=== PATIENT | female | born 1955 | race Caucasian/White ===

== ENCOUNTER → 2017-01-07 | Outpatient (CLI) | payer BC | END | disposition home or self-care (01) | LOC: CFH 11:22 | DX: Z12.31 Encounter for screening mammogram for malignant neoplasm of breast (principal) | CPT/HCPCS: G0202 ==

== ENCOUNTER 2020-03-13 14:28 | Inpatient (IN) | payer BC, OTHER ==
[~2020-03-13] VITALS: Ht 170.2 cm; Wt 56.9 kg
[2020-03-13 15:26] LABS: MEAN CORPUSCULAR HEMOGLOBIN 31.9 pg (27.0-34.8); MEAN CORPUSCULAR HGB CONC 34.6 g/dL (32.4-35.8); MEAN PLATELET VOLUME 9.4 fL (7.4-10.4); PLATELET COUNT 168 x10^3/uL (130-400); RED BLOOD COUNT 4.74 x10^6/uL (3.82-5.3); RED CELL DISTRIBUTION WIDTH 14.7 % (9.6-15.2)
[2020-03-13] MEDS ORDERED: SODIUM CHLORIDE 0.9% 1,000ML IVBOLUS ONE (15:30)
[2020-03-13] MEDS ORDERED: LORazepam 2 MG/ML, 1ML ONE (15:35)
[2020-03-13 15:36] LABS: ALANINE AMINOTRANSFERASE 150 U/L (12-78); ALBUMIN 3.8 g/dL (3.4-5.0); ANION GAP 10 mmol/L (5-15); CALCIUM 10.9 mg/dL (8.5-10.1); CHLORIDE 102 mmol/L (98-107); CREATININE 0.67 mg/dL (0.55-1.02)
[2020-03-13 15:38] LABS: ALKALINE PHOSPHATASE 496 U/L (45-117); BILIRUBIN,TOTAL 0.8 mg/dL (0.2-1.0); TOTAL PROTEIN 7.8 g/dL (6.4-8.2)
--- NOTE | 2020-03-13 15:48 | NUR ---
Pt with hx of migraines presents to the ER after being sent by her PCP for elevated anmonia levels. Pt states that she's had a constant MORRISSEY since January. She was seen by her PCP who recommended an ENT who was able to remove "significant amount of ear wax." The ENT recommended an eye doctor, the opthomologist states "he could see the double vision in my left eye." Pt has had a "normal CT of the brain." Pt ambulatory to [facility], steady gait. Daughter at side.
[2020-03-13] MEDS ORDERED: LORazepam 2 MG/ML, 1ML IVPush ONE (16:00)
[2020-03-13 16:03] LABS: MD YES
[2020-03-13 16:05] LABS: <PLATELET ESTIMATE> ADEQUATE; <PLT MORPHOLOGY> NORMAL PLT MORPH; BAND#(MANUAL) 0.09 x10^3/uL; BANDS%(MANUAL) 1 % (0-7); LYMPH#(MANUAL) 2.43 x10^3/uL (1-3.4); LYMPHS% (MANUAL) 27 % (22-44); MONOS#(MANUAL) 0.54 x10^3/uL (0.3-2.7); MONOS% (MANUAL) 6 % (2-9); SEG#(MANUAL) 5.94 x10^3/uL (1.8-6.8); SEGS% (MANUAL) 66 % (42-75)
[2020-03-13 16:06] LABS: <RBC MORPHOLOGY> NORMAL
[2020-03-13] MEDS ORDERED: ONDANSETRON 2MG/ML, 2ML IVPush ONE (16:30)
[2020-03-13] MEDS ORDERED: MORPHINE SULFATE 4 MG/ML, 1ML IVPush PRN (16:30)
[2020-03-13 16:31] LABS: MICROSCOPIC NOT IND
--- NOTE | 2020-03-13 16:53 | NUR ---
MD Mcadams at bedside to update pt on POC.
--- NOTE | 2020-03-13 17:19 | NUR ---
Pt denies need for pain meds at this time. Pt to imaging.
[2020-03-13] MEDS ORDERED: OMNIPAQUE 350 MG/ML, 100ML BOTTLE ONE (17:36)
--- NOTE | 2020-03-13 18:37 | NUR ---
This RN at bedside with MD Mcadams to update pt and daughter on POC.
[2020-03-13] MEDS ORDERED: SODIUM CHLORIDE 0.9% 1,000 ML IV ONE (19:00)
--- NOTE | 2020-03-13 19:24 | NUR ---
Vj CEJA NP at bedside.
[2020-03-13] MEDS ORDERED: morphine SULFATE 10 MG/ML, 1ML IVPush PRN (20:00)
[2020-03-13] MEDS ORDERED: ONDANSETRON ODT 4 MG PO PRN (20:00)
[2020-03-13] MEDS ORDERED: BISACODYL 10 MG SUPP PR PRN (20:00)
[2020-03-13] MEDS ORDERED: POLYETHYLENE GLYCOL 17 GM PACKET PO PRN (20:00)
[2020-03-13 20:01] VITALS: BP 134/75
[2020-03-13] MEDS: GABAPENTIN 100 MG CAPSULE PO SCH (21:21)
[2020-03-13] MEDS: SODIUM CHLORIDE FLUSH 10ML SYR IVF SCH (21:22)
[2020-03-14 00:12] VITALS: BP 150/72
[2020-03-14 04:51] LABS: BASOPHILS % (AUTO) 1 % (0-1); EOSINOPHILS % (AUTO) 1 % (1-7); LYMPHOCYTES % (AUTO) 21 % (22-44); MEAN CORPUSCULAR HEMOGLOBIN 31.7 pg (27.0-34.8); MEAN CORPUSCULAR HGB CONC 34.4 g/dL (32.4-35.8); MEAN PLATELET VOLUME 8.9 fL (7.4-10.4); MONOCYTES % (AUTO) 8 % (2-9); NEUTROPHILS % (AUTO) 70 % (42-75); PLATELET COUNT 144 x10^3/uL (130-400); RED BLOOD COUNT 4.11 x10^6/uL (3.82-5.3); RED CELL DISTRIBUTION WIDTH 14.7 % (9.6-15.2)
[2020-03-14 05:01] LABS: ALANINE AMINOTRANSFERASE 122 U/L (12-78); ALBUMIN 3.2 g/dL (3.4-5.0); ANION GAP 5 mmol/L (5-15); CALCIUM 9.9 mg/dL (8.5-10.1); CHLORIDE 107 mmol/L (98-107); CREATININE 0.43 mg/dL (0.55-1.02)
[2020-03-14 05:04] LABS: ALKALINE PHOSPHATASE 422 U/L (45-117); BILIRUBIN,TOTAL 0.7 mg/dL (0.2-1.0); TOTAL PROTEIN 6.4 g/dL (6.4-8.2)
[2020-03-14 05:34] LABS: MD SCAN
[2020-03-14 06:10] VITALS: BP 147/75
[2020-03-14 07:17] LABS: INTERNATIONAL NORMALIZED RATIO 0.99 (0.93-1.1); PROTHROMBIN TIME 10.6 Seconds (9.6-11.5)
[2020-03-14] MEDS ORDERED: GADOTERATE 5 MMOL/10 ML VIAL ONE (08:07)
[2020-03-14] MEDS ORDERED: LIDOCAINE 1%, 10ML ONE (08:08)
[2020-03-14] MEDS ORDERED: FENTANYL PF 100 MCG/2ML ONE (08:34)
[2020-03-14] MEDS ORDERED: MIDAZOLAM 1 MG/ML, 5ML ONE ×2 (08:34→08:35)
[2020-03-14] MEDS ORDERED: FLUMAZENIL 0.1 MG/1 ML, 5ML ONE (08:35)
[2020-03-14] MEDS ORDERED: NALOXONE 1 MG/ML, 2ML ONE (08:35)
[2020-03-14] MEDS ORDERED: OMNIPAQUE 350 MG/ML, 75ML BOTTLE ONE (09:19)
[2020-03-14] MEDS: SENNA/DOCUSATE TABLET PO SCH (09:49)
[2020-03-14] MEDS: SODIUM CHLORIDE FLUSH 10ML SYR IVF SCH ×2 (09:49→19:58)
[2020-03-14] MEDS: GABAPENTIN 100 MG CAPSULE PO SCH ×3 (09:49→19:58)
[2020-03-14] MEDS: ACETAMINOPHEN 325 MG TABLET PO PRN (13:52)
[2020-03-14 14:00] VITALS: BP 147/55
[2020-03-14 19:22] VITALS: BP 129/71
[2020-03-14] MEDS: AMOXICILLIN/CLAV 875-125MG TABLET PO SCH (19:56)
[2020-03-14] MEDS: OXYcodone IR 5MG TABLET PO PRN (19:57)
[2020-03-15] MEDS: OXYcodone IR 5MG TABLET PO PRN ×2 (00:26→10:27)
[2020-03-15] MEDS ORDERED: TRIAMCINOLONE ACETONIDE 40 MG/ML, 1ML IM ONE (01:30)
[2020-03-15] MEDS ORDERED: LIDOCAINE 1%, 10ML INFIL ONE (01:30)
[2020-03-15 01:34] VITALS: BP 124/73
[2020-03-15 05:17] LABS: MEAN CORPUSCULAR HEMOGLOBIN 31.6 pg (27.0-34.8); MEAN CORPUSCULAR HGB CONC 33.9 g/dL (32.4-35.8); MEAN PLATELET VOLUME 8.9 fL (7.4-10.4); PLATELET COUNT 150 x10^3/uL (130-400); RED BLOOD COUNT 4.17 x10^6/uL (3.82-5.3); RED CELL DISTRIBUTION WIDTH 14.6 % (9.6-15.2)
[2020-03-15 05:28] LABS: ANION GAP 6 mmol/L (5-15); CALCIUM 10.4 mg/dL (8.5-10.1); CHLORIDE 106 mmol/L (98-107)
[2020-03-15 05:52] LABS: MD YES
[2020-03-15 05:55] LABS: <RBC MORPHOLOGY> NORMAL; BAND#(MANUAL) 0.67 x10^3/uL; BANDS%(MANUAL) 9 % (0-7); EOS#(MANUAL) 0.44 x10^3/uL (0.0-0.4); EOS% (MANUAL) 6 % (1-7); LYMPH#(MANUAL) 0.89 x10^3/uL (1-3.4); LYMPHS% (MANUAL) 12 % (22-44); METAMYELOCYTES# (MANUAL) 0.07 x10^3/uL (0-0); METAMYELOCYTES% (MANUAL) 1 % (0-1); MONOS#(MANUAL) 0.52 x10^3/uL (0.3-2.7); MONOS% (MANUAL) 7 % (2-9); MYELOCYTES# (MANUAL) 0.07 x10^3/uL (0-0); MYELOCYTES% (MANUAL) 1 % (0-0); SEG#(MANUAL) 4.74 x10^3/uL (1.8-6.8); SEGS% (MANUAL) 64 % (42-75)
[2020-03-15 05:56] LABS: <PLATELET ESTIMATE> ADEQUATE; <PLT MORPHOLOGY> NORMAL PLT MORPH
[2020-03-15 07:48] VITALS: BP 119/56
[2020-03-15] MEDS: AMOXICILLIN/CLAV 875-125MG TABLET PO SCH ×2 (08:08→23:04)
[2020-03-15] MEDS: GABAPENTIN 100 MG CAPSULE PO SCH ×3 (08:08→23:05)
[2020-03-15] MEDS: SENNA/DOCUSATE TABLET PO SCH (08:09)
[2020-03-15] MEDS: SODIUM CHLORIDE FLUSH 10ML SYR IVF SCH ×2 (08:09→23:05)
[2020-03-15 13:02] VITALS: BP 120/66
[2020-03-15 20:17] VITALS: BP 127/71
[2020-03-15] MEDS: ACETAMINOPHEN 325 MG TABLET PO PRN (23:04)
[2020-03-16 00:22] VITALS: BP 126/75
[2020-03-16] MEDS: ACETAMINOPHEN 325 MG TABLET PO PRN ×3 (03:17→18:45)
[2020-03-16] MEDS: OXYcodone IR 5MG TABLET PO PRN ×4 (03:17→23:39)
[2020-03-16 04:54] LABS: MEAN CORPUSCULAR HEMOGLOBIN 31.5 pg (27.0-34.8); MEAN CORPUSCULAR HGB CONC 33.8 g/dL (32.4-35.8); MEAN PLATELET VOLUME 9.1 fL (7.4-10.4); PLATELET COUNT 152 x10^3/uL (130-400); RED BLOOD COUNT 4.18 x10^6/uL (3.82-5.3); RED CELL DISTRIBUTION WIDTH 14.8 % (9.6-15.2)
[2020-03-16 05:46] LABS: MD YES
[2020-03-16 05:48] LABS: BAND#(MANUAL) 0.67 x10^3/uL; BANDS%(MANUAL) 9 % (0-7); BASOS#(MANUAL) 0.07 x10^3/uL (0-0.1); BASOS% (MANUAL) 1 % (0-1); EOS#(MANUAL) 0.22 x10^3/uL (0.0-0.4); EOS% (MANUAL) 3 % (1-7); LYMPH#(MANUAL) 1.48 x10^3/uL (1-3.4); LYMPHS% (MANUAL) 20 % (22-44); METAMYELOCYTES# (MANUAL) 0.37 x10^3/uL (0-0); METAMYELOCYTES% (MANUAL) 5 % (0-1); MONOS#(MANUAL) 0.67 x10^3/uL (0.3-2.7); MONOS% (MANUAL) 9 % (2-9); SEG#(MANUAL) 3.92 x10^3/uL (1.8-6.8); SEGS% (MANUAL) 53 % (42-75)
[2020-03-16 05:49] LABS: <PLATELET ESTIMATE> ADEQUATE; <PLT MORPHOLOGY> NORMAL PLT MORPH; <RBC MORPHOLOGY> NORMAL
[2020-03-16 07:05] VITALS: BP 150/73
[2020-03-16] MEDS: GABAPENTIN 100 MG CAPSULE PO SCH ×3 (08:06→21:00)
[2020-03-16] MEDS: AMOXICILLIN/CLAV 875-125MG TABLET PO SCH ×2 (08:06→21:00)
[2020-03-16] MEDS: SODIUM CHLORIDE FLUSH 10ML SYR IVF SCH ×2 (08:06→21:02)
[2020-03-16] MEDS: SENNA/DOCUSATE TABLET PO SCH (08:06)
[2020-03-16 12:47] VITALS: BP 147/76
[2020-03-16 16:33] LABS: ALANINE AMINOTRANSFERASE 172 U/L (12-78); ALBUMIN 3.6 g/dL (3.4-5.0); ANION GAP 7 mmol/L (5-15); CALCIUM 10.8 mg/dL (8.5-10.1); CHLORIDE 105 mmol/L (98-107); CREATININE 0.58 mg/dL (0.55-1.02)
[2020-03-16 16:35] LABS: ALKALINE PHOSPHATASE 521 U/L (45-117); BILIRUBIN,TOTAL 0.9 mg/dL (0.2-1.0)
[2020-03-16 19:35] VITALS: BP 149/77
[2020-03-16] MEDS ORDERED: ALUMINUM/MAG/SIMETHICONE 30 ML UDC PO PRN (20:30)
[2020-03-16] MEDS: HEPARIN 5,000 UNITS/ML, 1ML SQ SCH (21:02)
[2020-03-17 01:27] VITALS: BP 145/77
[2020-03-17] MEDS: OXYcodone IR 5MG TABLET PO PRN ×4 (03:34→20:38)
[2020-03-17 05:23] LABS: BASOPHILS % (AUTO) 1 % (0-1); EOSINOPHILS % (AUTO) 1 % (1-7); LYMPHOCYTES % (AUTO) 21 % (22-44); MEAN CORPUSCULAR HEMOGLOBIN 31.4 pg (27.0-34.8); MEAN CORPUSCULAR HGB CONC 33.9 g/dL (32.4-35.8); MEAN PLATELET VOLUME 9.3 fL (7.4-10.4); MONOCYTES % (AUTO) 9 % (2-9); PLATELET COUNT 164 x10^3/uL (130-400); RED BLOOD COUNT 4.39 x10^6/uL (3.82-5.3); RED CELL DISTRIBUTION WIDTH 14.6 % (9.6-15.2)
[2020-03-17 05:31] LABS: ALANINE AMINOTRANSFERASE 150 U/L (12-78); ALBUMIN 3.4 g/dL (3.4-5.0); ANION GAP 6 mmol/L (5-15); CALCIUM 10.7 mg/dL (8.5-10.1); CHLORIDE 105 mmol/L (98-107); CREATININE 0.54 mg/dL (0.55-1.02)
[2020-03-17 05:33] LABS: ALKALINE PHOSPHATASE 512 U/L (45-117); BILIRUBIN,TOTAL 1.1 mg/dL (0.2-1.0); TOTAL PROTEIN 7.1 g/dL (6.4-8.2)
[2020-03-17 06:28] LABS: MD YES
[2020-03-17 06:32] LABS: BAND#(MANUAL) 1.15 x10^3/uL; BANDS%(MANUAL) 16 % (0-7); LYMPH#(MANUAL) 1.15 x10^3/uL (1-3.4); LYMPHS% (MANUAL) 16 % (22-44); METAMYELOCYTES# (MANUAL) 0.07 x10^3/uL (0-0); METAMYELOCYTES% (MANUAL) 1 % (0-1); MONOS#(MANUAL) 0.29 x10^3/uL (0.3-2.7); MONOS% (MANUAL) 4 % (2-9); SEG#(MANUAL) 4.54 x10^3/uL (1.8-6.8); SEGS% (MANUAL) 63 % (42-75)
[2020-03-17 06:33] LABS: <PLATELET ESTIMATE> ADEQUATE; <PLT MORPHOLOGY> NORMAL PLT MORPH; <RBC MORPHOLOGY> NORMAL
[2020-03-17] MEDS: GABAPENTIN 100 MG CAPSULE PO SCH ×3 (08:19→20:38)
[2020-03-17] MEDS: HEPARIN 5,000 UNITS/ML, 1ML SQ SCH ×2 (08:19→20:40)
[2020-03-17] MEDS: AMOXICILLIN/CLAV 875-125MG TABLET PO SCH ×2 (08:19→20:38)
[2020-03-17] MEDS: SODIUM CHLORIDE FLUSH 10ML SYR IVF SCH ×2 (08:20→20:43)
[2020-03-17] MEDS: SODIUM CHLORIDE 0.9% 1,000 ML IV SCH ×2 (08:55→20:41)
[2020-03-17] MEDS ORDERED: FOSAPREPITANT 150 MG in SODIUM CHLORIDE 0.9% 145 ML IV ONE (09:00)
[2020-03-17] MEDS: ONDANSETRON 16 MG, DEXAMETHASONE 12 MG in SODIUM CHLORIDE 0.9% 50 ML IVPB SCH (09:28)
[2020-03-17 09:29] VITALS: BP 132/73
[2020-03-17] MEDS ORDERED: CARBOPLATIN IV SCH (10:00)
[2020-03-17] MEDS ORDERED: SODIUM CHLORIDE 0.9% IV SCH (10:00)
[2020-03-17] MEDS: SODIUM CHLORIDE 0.9% IVPB SCH (12:12)
[2020-03-17] MEDS: ETOPOSIDE IVPB SCH (12:12)
[2020-03-17 12:14] VITALS: BP 128/69
[2020-03-17 17:04] VITALS: BP 113/63
[2020-03-17 18:32] VITALS: BP 148/81
[2020-03-17] MEDS: SENNA/DOCUSATE TABLET PO SCH (20:39)
[2020-03-18 00:15] VITALS: BP 157/79
[2020-03-18] MEDS: OXYcodone IR 5MG TABLET PO PRN ×2 (00:32→04:33)
[2020-03-18 05:40] LABS: MEAN CORPUSCULAR HEMOGLOBIN 31.5 pg (27.0-34.8); MEAN CORPUSCULAR HGB CONC 33.8 g/dL (32.4-35.8); MEAN PLATELET VOLUME 8.9 fL (7.4-10.4); PLATELET COUNT 172 x10^3/uL (130-400)
[2020-03-18 05:44] LABS: ANION GAP 7 mmol/L (5-15); CALCIUM 9.6 mg/dL (8.5-10.1); CHLORIDE 105 mmol/L (98-107)
[2020-03-18] MEDS: SODIUM CHLORIDE 0.9% 1,000 ML IV SCH ×2 (05:46→18:18)
[2020-03-18 05:48] LABS: ALANINE AMINOTRANSFERASE 135 U/L (12-78); ALKALINE PHOSPHATASE 458 U/L (45-117); BILIRUBIN,TOTAL 0.7 mg/dL (0.2-1.0); CREATININE 0.58 mg/dL (0.55-1.02); TOTAL PROTEIN 6.4 g/dL (6.4-8.2)
[2020-03-18 06:33] VITALS: BP 143/71
[2020-03-18 06:48] LABS: MD YES
[2020-03-18 06:50] LABS: <RBC MORPHOLOGY> NORMAL; BAND#(MANUAL) 0.92 x10^3/uL; BANDS%(MANUAL) 11 % (0-7); BASOS#(MANUAL) 0.08 x10^3/uL (0-0.1); BASOS% (MANUAL) 1 % (0-1); LYMPH#(MANUAL) 1.68 x10^3/uL (1-3.4); LYMPHS% (MANUAL) 20 % (22-44); MONOS#(MANUAL) 0.34 x10^3/uL (0.3-2.7); MONOS% (MANUAL) 4 % (2-9); SEG#(MANUAL) 5.38 x10^3/uL (1.8-6.8); SEGS% (MANUAL) 64 % (42-75)
[2020-03-18 06:51] LABS: <PLATELET ESTIMATE> ADEQUATE; <PLT MORPHOLOGY> NORMAL PLT MORPH
[2020-03-18] MEDS: AMOXICILLIN/CLAV 875-125MG TABLET PO SCH ×2 (08:23→21:17)
[2020-03-18] MEDS: SENNA/DOCUSATE TABLET PO SCH (08:23)
[2020-03-18] MEDS: GABAPENTIN 100 MG CAPSULE PO SCH ×3 (08:23→21:17)
[2020-03-18] MEDS: SODIUM CHLORIDE FLUSH 10ML SYR IVF SCH ×2 (08:25→21:24)
[2020-03-18] MEDS: HEPARIN 5,000 UNITS/ML, 1ML SQ SCH ×2 (08:25→21:17)
[2020-03-18] MEDS: ONDANSETRON 16 MG, DEXAMETHASONE 12 MG in SODIUM CHLORIDE 0.9% 50 ML IVPB SCH (10:15)
[2020-03-18] MEDS: SODIUM CHLORIDE 0.9% IVPB SCH (12:09)
[2020-03-18] MEDS: ETOPOSIDE IVPB SCH (12:09)
[2020-03-18 12:45] VITALS: BP 131/53
[2020-03-18 19:39] VITALS: BP 148/71
[2020-03-19 03:03] VITALS: BP 146/75
[2020-03-19 04:47] LABS: BASOPHILS % (AUTO) 1 % (0-1); EOSINOPHILS % (AUTO) 0 % (1-7); LYMPHOCYTES % (AUTO) 22 % (22-44); MEAN CORPUSCULAR HEMOGLOBIN 31.6 pg (27.0-34.8); MEAN CORPUSCULAR HGB CONC 34.2 g/dL (32.4-35.8); MEAN PLATELET VOLUME 9.3 fL (7.4-10.4); MONOCYTES % (AUTO) 6 % (2-9); NEUTROPHILS % (AUTO) 71 % (42-75); PLATELET COUNT 170 x10^3/uL (130-400); RED BLOOD COUNT 3.74 x10^6/uL (3.82-5.3); RED CELL DISTRIBUTION WIDTH 14.6 % (9.6-15.2)
[2020-03-19 04:48] LABS: MD NO
[2020-03-19 05:00] LABS: ALBUMIN 2.7 g/dL (3.4-5.0); ANION GAP 3 mmol/L (5-15); CALCIUM 8.9 mg/dL (8.5-10.1); CHLORIDE 106 mmol/L (98-107)
[2020-03-19 05:06] LABS: ALANINE AMINOTRANSFERASE 106 U/L (12-78); ALKALINE PHOSPHATASE 409 U/L (45-117); BILIRUBIN,TOTAL 0.6 mg/dL (0.2-1.0); TOTAL PROTEIN 5.9 g/dL (6.4-8.2)
[2020-03-19 07:29] VITALS: BP 156/72
[2020-03-19] MEDS: SODIUM CHLORIDE 0.9% 1,000 ML IV SCH ×2 (07:53→21:57)
[2020-03-19] MEDS ORDERED: GLYCERIN ADULT SUPP PR PRN (10:00)
[2020-03-19] MEDS ORDERED: HEMORRHOIDAL OINT, 28 GM (PREP H) RC PRN (10:00)
[2020-03-19] MEDS: GABAPENTIN 100 MG CAPSULE PO SCH ×3 (10:04→20:48)
[2020-03-19] MEDS: SENNA/DOCUSATE TABLET PO SCH (10:04)
[2020-03-19] MEDS: SODIUM CHLORIDE FLUSH 10ML SYR IVF SCH ×2 (10:05→21:58)
[2020-03-19] MEDS: HEPARIN 5,000 UNITS/ML, 1ML SQ SCH ×3 (10:05→21:00)
[2020-03-19] MEDS: AMOXICILLIN/CLAV 875-125MG TABLET PO SCH ×2 (10:05→20:47)
[2020-03-19] MEDS: ONDANSETRON 16 MG, DEXAMETHASONE 12 MG in SODIUM CHLORIDE 0.9% 50 ML IVPB SCH (10:31)
[2020-03-19] MEDS: ETOPOSIDE IVPB SCH (11:27)
[2020-03-19] MEDS: SODIUM CHLORIDE 0.9% IVPB SCH (11:27)
[2020-03-19 12:45] VITALS: BP 136/77
[2020-03-19 18:45] VITALS: BP 123/74
[2020-03-20 02:13] VITALS: BP 136/74
[2020-03-20 05:11] LABS: BASOPHILS % (AUTO) 1 % (0-1); EOSINOPHILS % (AUTO) 0 % (1-7); LYMPHOCYTES % (AUTO) 21 % (22-44); MEAN CORPUSCULAR HEMOGLOBIN 31.2 pg (27.0-34.8); MEAN CORPUSCULAR HGB CONC 33.8 g/dL (32.4-35.8); MEAN PLATELET VOLUME 8.9 fL (7.4-10.4); MONOCYTES % (AUTO) 3 % (2-9); NEUTROPHILS % (AUTO) 74 % (42-75); PLATELET COUNT 184 x10^3/uL (130-400); RED BLOOD COUNT 3.79 x10^6/uL (3.82-5.3); RED CELL DISTRIBUTION WIDTH 14.6 % (9.6-15.2)
[2020-03-20 05:17] LABS: MD NO
[2020-03-20 05:27] LABS: ALBUMIN 2.7 g/dL (3.4-5.0); ANION GAP 5 mmol/L (5-15); CALCIUM 8.8 mg/dL (8.5-10.1); CHLORIDE 105 mmol/L (98-107)
[2020-03-20 05:31] LABS: ALANINE AMINOTRANSFERASE 86 U/L (12-78); ALKALINE PHOSPHATASE 395 U/L (45-117); BILIRUBIN,TOTAL 0.6 mg/dL (0.2-1.0); CREATININE 0.37 mg/dL (0.55-1.02)
[2020-03-20 07:23] VITALS: BP 166/67
[2020-03-20] MEDS: SODIUM CHLORIDE FLUSH 10ML SYR IVF SCH ×2 (08:30→20:12)
[2020-03-20] MEDS: SENNA/DOCUSATE TABLET PO SCH (08:32)
[2020-03-20] MEDS: GABAPENTIN 100 MG CAPSULE PO SCH ×3 (08:32→20:13)
[2020-03-20] MEDS: AMOXICILLIN/CLAV 875-125MG TABLET PO SCH ×2 (08:32→20:13)
[2020-03-20] MEDS: SODIUM CHLORIDE 0.9% 1,000 ML IV SCH ×2 (08:32→18:50)
[2020-03-20] MEDS: HEPARIN 5,000 UNITS/ML, 1ML SQ SCH ×2 (08:33→20:13)
[2020-03-20] MEDS ORDERED: GABA-826 PO (12:11)
[2020-03-20] MEDS ORDERED: OXYC5TAB98 PO (12:11)
[2020-03-20 13:25] VITALS: BP 118/65
[2020-03-20 19:58] VITALS: BP 116/67
[2020-03-21 00:45] VITALS: BP 120/68
[2020-03-21] MEDS: SODIUM CHLORIDE 0.9% 1,000 ML IV SCH (03:43)
[2020-03-21 06:20] VITALS: BP 117/61
[2020-03-21] MEDS: SODIUM CHLORIDE FLUSH 10ML SYR IVF SCH ×2 (09:00→20:53)
[2020-03-21] MEDS: AMOXICILLIN/CLAV 875-125MG TABLET PO SCH ×2 (10:01→20:53)
[2020-03-21] MEDS: GABAPENTIN 100 MG CAPSULE PO SCH ×3 (10:01→20:52)
[2020-03-21] MEDS: TBO-FILGRASTIM 300 MCG/0.5 ML SQ SCH (10:01)
[2020-03-21] MEDS: SENNA/DOCUSATE TABLET PO SCH (10:01)
[2020-03-21] MEDS: HEPARIN 5,000 UNITS/ML, 1ML SQ SCH ×2 (10:02→20:59)
[2020-03-21 12:13] VITALS: BP 146/74
[2020-03-21 19:13] VITALS: BP 129/62
[2020-03-21] MEDS ORDERED: FAMOTIDINE 40 MG TABLET ONE (20:45)
[2020-03-22 01:34] VITALS: BP 124/64
[2020-03-22] MEDS ORDERED: FAMOTIDINE 40 MG TABLET ONE ×2 (05:01→08:57)
[2020-03-22] MEDS: FAMOTIDINE 20 MG TABLET PO SCH ×2 (05:04→09:09)
[2020-03-22 06:32] VITALS: BP 117/62
[2020-03-22] MEDS: GABAPENTIN 100 MG CAPSULE PO SCH ×2 (09:08→17:34)
[2020-03-22] MEDS: SENNA/DOCUSATE TABLET PO SCH (09:08)
[2020-03-22] MEDS: AMOXICILLIN/CLAV 875-125MG TABLET PO SCH (09:08)
[2020-03-22] MEDS: HEPARIN 5,000 UNITS/ML, 1ML SQ SCH (09:09)
[2020-03-22] MEDS: SODIUM CHLORIDE FLUSH 10ML SYR IVF SCH (09:10)
[2020-03-22] MEDS: TBO-FILGRASTIM 300 MCG/0.5 ML SQ SCH (09:29)
[2020-03-22 13:01] VITALS: BP 115/65
== END 2020-03-22 18:04 | disposition home or self-care (01) | DRG 435 ==
LOC: ED 17:46 → EDIP 18:46 → 4NE 19:58 → 4NW 03-16 17:47
PROVIDERS: ADMIT Family Medicine; ATTEND Internal Medicine
PROC: 0FB13ZX Excision of Right Lobe Liver, Percutaneous Approach, Diagnostic (ICD-10-PCS; principal; 2020-03-14)
DX: C78.7 Secondary malignant neoplasm of liver and intrahepatic bile duct (principal); J18.9 Pneumonia, unspecified organism; J96.91 Respiratory failure, unspecified with hypoxia; J44.0 Chronic obstructive pulmonary disease with (acute) lower respiratory infection; C34.90 Malignant neoplasm of unspecified part of unspecified bronchus or lung; Z20.822 Contact with and (suspected) exposure to COVID-19; E83.52 Hypercalcemia; F17.210 Nicotine dependence, cigarettes, uncomplicated; G50.0 Trigeminal neuralgia; G89.29 Other chronic pain; H53.2 Diplopia; K59.00 Constipation, unspecified; K72.90 Hepatic failure, unspecified without coma; G43.909 Migraine, unspecified, not intractable, without status migrainosus; R79.89 Other specified abnormal findings of blood chemistry; Z80.1 Family history of malignant neoplasm of trachea, bronchus and lung; Z92.21 Personal history of antineoplastic chemotherapy; Z79.899 Other long term (current) drug therapy; Z79.891 Long term (current) use of opiate analgesic; Z79.01 Long term (current) use of anticoagulants
CPT/HCPCS: 36415; 96361; 96374; 99285; J3490; 47000; 70553; 71045; 71260; 74177; 76942; 78306; 80048; 80053; 80074; 81003; 82140; 82306; 82330; 83690; 83970; 84550; 85025; 85610; 88307; 88341; 88342; 88360; 93005; 99156; 99157; G0378; J1100; J1453; J1644; J2250; J2405; J3010; J9045; Q0162; Q9967; A9503; A9575; J1447; J2060; J2310; J7030; J7040; J7050; J9181

== ENCOUNTER → 2020-06-28 | Outpatient (CLI) | payer MEDICARE ==
[~2020-06-28] MED LIST: GABA-826 PO; OXYC5TAB98 PO
== END | disposition home or self-care (01) ==
LOC: ROC 07:45
PROVIDERS: ATTEND Radiology Radiation Oncology
DX: C34.32 Malignant neoplasm of lower lobe, left bronchus or lung (principal); G89.29 Other chronic pain; E83.52 Hypercalcemia; Z79.01 Long term (current) use of anticoagulants; Z79.891 Long term (current) use of opiate analgesic; Z87.891 Personal history of nicotine dependence; Z79.899 Other long term (current) drug therapy
CPT/HCPCS: G0463

== ENCOUNTER → 2020-07-26 | Outpatient (CLI) | payer MEDICARE ==
[~2020-07-26] MED LIST changes: +ALPR1TAB2 PO
== END | disposition home or self-care (01) ==
LOC: ROC 07:43
PROVIDERS: ATTEND Radiology Radiation Oncology
DX: Z08 Encounter for follow-up examination after completed treatment for malignant neoplasm (principal); Z85.118 Personal history of other malignant neoplasm of bronchus and lung; Z85.841 Personal history of malignant neoplasm of brain; G89.29 Other chronic pain; Z79.01 Long term (current) use of anticoagulants; Z79.891 Long term (current) use of opiate analgesic; Z87.891 Personal history of nicotine dependence; Z79.899 Other long term (current) drug therapy
CPT/HCPCS: G0463

== ENCOUNTER → 2020-08-01 | Outpatient (CLI) | payer MEDICARE | END | disposition home or self-care (01) | LOC: RAD 09:39 | PROVIDERS: ATTEND Internal Medicine Hematology & Oncology | DX: C34.90 Malignant neoplasm of unspecified part of unspecified bronchus or lung (principal); M41.84 Other forms of scoliosis, thoracic region | CPT/HCPCS: 78306; A9503 ==

== ENCOUNTER → 2020-09-06 | Outpatient (CLI) | payer MEDICARE | END | disposition home or self-care (01) | LOC: ROC 09:21 | PROVIDERS: ATTEND Radiology Radiation Oncology | DX: C79.31 Secondary malignant neoplasm of brain (principal); C34.32 Malignant neoplasm of lower lobe, left bronchus or lung; G89.29 Other chronic pain; R53.83 Other fatigue; Z79.01 Long term (current) use of anticoagulants; Z79.891 Long term (current) use of opiate analgesic; Z79.899 Other long term (current) drug therapy; Z87.891 Personal history of nicotine dependence | CPT/HCPCS: G0463 ==

== ENCOUNTER 2020-10-04 10:44 | Outpatient (CLI) | payer MEDICARE | END 2020-10-04 23:59 | disposition home or self-care (01) | LOC: ROC 10:44 | PROVIDERS: ATTEND Radiology Radiation Oncology | DX: Z08 Encounter for follow-up examination after completed treatment for malignant neoplasm (principal); Z85.841 Personal history of malignant neoplasm of brain; G89.29 Other chronic pain; R53.83 Other fatigue; Z85.118 Personal history of other malignant neoplasm of bronchus and lung; Z79.01 Long term (current) use of anticoagulants; Z79.891 Long term (current) use of opiate analgesic; Z79.899 Other long term (current) drug therapy; Z87.891 Personal history of nicotine dependence | CPT/HCPCS: G0463 ==